=== PATIENT | male | born 1975 | race African-American/Black ===

== ENCOUNTER 2018-08-09 12:25 | Emergency (ER) | payer OTHER ==
[2018-08-09] MEDS ORDERED: IBUPROFEN 400 MG TABLET PO STA (16:21)
[2018-08-09] MEDS ORDERED: LIDOCAINE PATCH 5% TOP STA (16:21)
--- NOTE | 2018-08-09 16:23 | ED Physician Documentation ---
History of Present Illness - Stated complaint Stated Complaint: BACK PX - Chief complaint Chief Complaint: Back Pain - Additonal information Additional information: hx from pt 43 male [place] fell over something at work today and landed on bottom and back severe pain to posterior low right rib region no head injury no neck pain'no low back pain PD PAST MEDICAL HISTORY - Past Medical History Past Medical History: No Cardiovascular: None Respiratory: None Neuro: None Endocrine/Autoimmune: None GI: None : None HEENT: None Psych: ADD/ADHD Musculoskeletal: None Derm: None - Past Surgical History Past Surgical History: No - Present Medications Home Medications: Ambulatory Orders Medication Instructions Recorded Confirmed Cyclobenzaprine [Flexeril] 10 mg PO TID PRN #20 tablet 08/09/18 Ibuprofen [Motrin] 400 mg PO Q6H #30 tablet 08/09/18 Lidocaine Patch 5% [Lidoderm Patch] 1 patch TOP DAILY PRN #10 patch 08/09/18 - Allergies Allergies/Adverse Reactions: Allergies Allergy/AdvReac Type Severity Reaction Status Date / Time No Known Drug Allergies Allergy Verified 08/09/18 12:57 - Social History Does the pt smoke?: No Smoking Status: Never smoker Does the pt drink ETOH?: Yes Does the pt have substance abuse?: No - Immunizations Immunizations are current?: Yes - POLST Patient has POLST: No Results - Vitals Vitals: Vital Signs - 24 hr 08/09/18 08/09/18 12:53 15:59 Temperature 36.2 C L Heart Rate 50 L 77 Respiratory 16 18 Rate Blood Pressure 127/70 111/67 O2 Saturation 97 99 Oxygen O2 Source Room air - Rads (name of study) CXR PA and lat Radiology: See rad report (no acute) Departure - Departure Disposition: Home, Self Care Clinical Impression: Fall Qualifiers: Encounter type: initial encounter Qualified Code(s): W19.XXXA - Unspecified fall, initial encounter Back contusion Qualifiers: Encounter type: initial encounter Laterality: left Qualified Code(s): S20.222A - Contusion of left back wall of thorax, initial encounter Condition: Good Instructions: ED Contusion Back, ED Neck Back Pain General Follow-Up: [facility] [Provider Group] Prescriptions: Cyclobenzaprine [Flexeril] 10 mg PO TID PRN #20 tablet PRN Reason: Spasms Ibuprofen [Motrin] 400 mg PO Q6H #30 tablet Lidocaine Patch 5% [Lidoderm Patch] 1 patch TOP DAILY PRN #10 patch PRN Reason: pain Comments: The xray does not show any rib or spine fractures nor any lung injry. You have a normal neurologic exam. I think it is safe for you to go home with medication for the pain and a note for limited duty Forms: Activity restrictions
--- NOTE | 2018-08-09 17:39 | XRAY Report ---
Reason: soa Procedure Date: 08/09/2018 Accession Number: [id number] / [id number] Procedure: XR - Chest 2 View X-Ray CPT Code: 78773 FULL RESULT: EXAM: CHEST RADIOGRAPHY EXAM DATE: 08/09/2018 05:11 PM. CLINICAL HISTORY: Soa. COMPARISON: None. TECHNIQUE: 2 views. FINDINGS: Lungs/Pleura: No focal opacities evident. No pleural effusion. No pneumothorax. Normal volumes. Mediastinum: Heart and mediastinal contours are unremarkable. Other: There is a round 3 mm metal density structure overlying the left upper lobe on both images. IMPRESSION: 1. No evidence of pneumonia or acute airspace disease. 2. 3 mm round metal density/BB, possibly located within the left upper lobe RADIA
[2018-08-09 18:01] VITALS: BP 120/78
== END 2018-08-09 18:01 | disposition home or self-care (01) ==
LOC: ED 12:25
DX: S20.222A Contusion of left back wall of thorax, initial encounter (principal); W18.30XA Fall on same level, unspecified, initial encounter; W22.09XA Striking against other stationary object, initial encounter; Y99.0 Civilian activity done for income or pay
CPT/HCPCS: 71046; 99283; A9270

== ENCOUNTER 2021-03-04 07:49 | Emergency (ER) | payer OTHER ==
[2021-03-04 08:23] LABS: BASOPHILS # (AUTO) 0.1 10^3/uL (0.0-0.1); BASOPHILS % (AUTO) 1.1 %; EOSINOPHILS # (AUTO) 0.3 10^3/uL (0.0-0.7); EOSINOPHILS % (AUTO) 5.3 %; HCT - HEMATOCRIT 43.2 % (42.0-52.0); HGB - HEMOGLOBIN 14.5 g/dL (14.0-18.0); LYMPHOCYTES # (AUTO) 1.8 10^3/uL (1.5-3.5); LYMPHOCYTES % (AUTO) 29.6 %; MEAN CORPUSCULAR HEMOGLOBIN 29.5 pg (27.0-31.0); MEAN CORPUSCULAR HGB CONC 33.6 g/dL (32.0-36.0); MEAN CORPUSCULAR VOLUME 87.8 fL (80.0-94.0); MEAN PLATELET VOLUME 10.5 fL (7.4-11.4); MONOCYTES # (AUTO) 0.3 10^3/uL (0.0-1.0); MONOCYTES % (AUTO) 5.3 %; NEUTROPHILS # (AUTO) 3.6 10^3/uL (1.5-6.6); NEUTROPHILS % (AUTO) 58.5 %; PLT - PLATELET COUNT 256 10^3/uL (130-450); RED BLOOD COUNT 4.92 10^6/uL (4.70-6.10); WHITE BLOOD COUNT 6.2 x10^3/uL (4.8-10.8)
[2021-03-04 08:34] LABS: BILIRUBIN,URINE NEGATIVE (NEGATIVE); GLUCOSE, URINE (UA) NEGATIVE (NEGATIVE); KETONES,URINE (UA) NEGATIVE (NEGATIVE); LEUKOCYTE ESTERASE, URINE NEGATIVE (NEGATIVE); NITRITE,URINE NEGATIVE (NEGATIVE); OCCULT BLOOD,URINE NEGATIVE (NEGATIVE); PROTEIN,URINE NEGATIVE (NEGATIVE); UROBILINOGEN,URINE 0.2 (NORMAL) E.U./dL (NORMAL)
[2021-03-04 08:35] LABS: CLARITY,URINE CLEAR (CLEAR)
[2021-03-04 08:37] LABS: ALBUMIN 4.3 g/dL (3.2-5.5); ALBUMIN/GLOBULIN RATIO 1.4 (1.0-2.2); BILIRUBIN,TOTAL 0.6 mg/dL (0.2-1.0); CALCIUM 9.3 mg/dL (8.5-10.3); CREATININE 0.9 mg/dL (0.6-1.2); POTASSIUM 3.9 mmol/L (3.5-5.0); TOTAL PROTEIN 7.3 g/dL (6.7-8.2)
[2021-03-04] MEDS: GI COCKTAIL 120 ML BOTTLE PO STA (09:18)
--- NOTE | 2021-03-04 09:20 | ED Physician Documentation ---
PD HPI ABD PAIN - Stated complaint Stated Complaint: ABD PX - Chief complaint Chief Complaint: Abd Pain - History obtained from History obtained from: Patient - Additional information Additional information: Patient comes emergency department chief complaint of intermittent upper abdominal pain and nausea for the last 3 weeks. He states it started after he got his second Covid shot and is also had migraines since then, as well. Patient denies actual vomiting but states that he has nausea along with the episodes. He states he gets them every few days and that they seem to come on randomly. He denies association with any certain kind of food. No fevers or chills. No changes in bowel habits. No dysuria. No back pain. Patient has a sickle cell trait history but has never had symptoms with this. No known history in the patient or family of gallstones or ulcers. He is otherwise fairly healthy, he states. No other complaints at this time. [place] states he was just given "aspirin" and sent home. He has not had any testing or other evaluation. Review of Systems Ten Systems: 10 systems reviewed and negative Constitutional: reports: Reviewed and negative Eyes: reports: Reviewed and negative Ears: reports: Reviewed and negative Nose: reports: Reviewed and negative Throat: reports: Reviewed and negative Cardiac: reports: Reviewed and negative Respiratory: reports: Reviewed and negative GI: reports: Abdominal Pain, Nausea : reports: Reviewed and negative Skin: reports: Reviewed and negative Musculoskeletal: reports: Reviewed and negative Neurologic: reports: Reviewed and negative Psychiatric: reports: Reviewed and negative Endocrine: reports: Reviewed and negative Immunocompromised: reports: Reviewed and negative PD PAST MEDICAL HISTORY - Past Medical History Cardiovascular: Murmur Respiratory: None Neuro: Migraines Endocrine/Autoimmune: None GI: None : None HEENT: None Psych: ADD/ADHD Musculoskeletal: None Derm: None - Past Surgical History Past Surgical History: No - Present Medications Home Medications: Ambulatory Orders Medication Instructions Recorded Confirmed Ondansetron Odt [Zofran] 4 mg TL Q6H PRN #10 tablet 03/04/21 Pantoprazole Sodium [Protonix] 20 mg PO DAILY #30 03/04/21 - Allergies Allergies/Adverse Reactions: Allergies Allergy/AdvReac Type Severity Reaction Status Date / Time No Known Drug Allergies Allergy Verified 03/04/21 07:59 - Social History Does the pt smoke?: No Smoking Status: Never smoker Does the pt drink ETOH?: Yes Does the pt have substance abuse?: No - Immunizations Immunizations are current?: Yes - POLST Patient has POLST: No PD ED PE NORMAL - Vitals Vital signs reviewed: Yes - General General: Alert and oriented X 3, No acute distress, Well developed/nourished - HEENT HEENT: Atraumatic, PERRL, EOMI, Moist mucous membranes - Neck Neck: Supple, no meningeal sign - Cardiac Cardiac: RRR, No murmur, Strong equal pulses - Respiratory Respiratory: No respiratory distress, Clear bilaterally - Abdomen Abdomen: Soft, Non distended, Other (Moderate tenderness across upper abdomen without rebound or guarding.) - Back Back: No CVA TTP - Derm Derm: Normal color, Warm and dry, No rash - Extremities Extremities: No deformity, No edema - Neuro Neuro: Alert and oriented X 3 - Psych Psych: Normal mood, Normal affect Results - Vitals Vitals: Vital Signs - 24 hr 03/04/21 10:33 Temperature 36.6 C Heart Rate 55 L Respiratory 16 Rate Blood Pressure 115/76 O2 Saturation 99 Oxygen O2 Source Room air - Labs Labs: Laboratory Tests 03/04/21 03/04/21 03/04/21 08:15 08:15 08:15 WBC 6.2 RBC 4.92 Hgb 14.5 Hct 43.2 MCV 87.8 MCH 29.5 MCHC 33.6 RDW 13.0 Plt Count 256 MPV 10.5 Neut # (Auto) 3.6 Lymph # (Auto) 1.8 Barry # (Auto) 0.3 Eos # (Auto) 0.3 Baso # (Auto) 0.1 Absolute Nucleated RBC 0.00 Nucleated RBC % 0.0 Sodium 140 Potassium 3.9 Chloride 103 Carbon Dioxide 30 Anion Gap 7.0 BUN 12 Creatinine 0.9 Estimated GFR (MDRD) 111 Glucose 124 H Calcium 9.3 Total Bilirubin 0.6 AST 26 ALT 42 Alkaline Phosphatase 57 Total Protein 7.3 Albumin 4.3 Globulin 3.0 Albumin/Globulin Ratio 1.4 Lipase 52 H Urine Color YELLOW Urine Clarity CLEAR Urine pH 5.0 Ur Specific [place] 1.025 Urine Protein NEGATIVE Urine Glucose (UA) NEGATIVE Urine Ketones NEGATIVE Urine Occult Blood NEGATIVE Urine Nitrite NEGATIVE Urine Bilirubin NEGATIVE Urine Urobilinogen 0.2 (NORMAL) Ur Leukocyte Esterase NEGATIVE Ur Microscopic Review NOT INDICATED Urine Culture Comments NOT INDICATED PD MEDICAL DECISION MAKING - ED course Complexity details: reviewed results, re-evaluated patient, considered differential, d/w patient ED course: The patient was treated with a liter of 0.9 normal saline and given a GI cocktail, Zofran, and Protonix. Patient was worked up with labs, which were overall unremarkable except a slightly elevated lipase. He was also worked up ultrasound of the upper abdomen. US was negative. We have discussed that the next step to consider in work-up should be a scope. I have started the pt on Protonix and Zofran. Departure - Departure Disposition: Home, Self Care Clinical Impression: Abdominal pain Qualifiers: Abdominal location: upper abdomen, unspecified Qualified Code(s): R10.10 - Upper abdominal pain, unspecified Condition: Stable Instructions: ED Abdominal Pain Unkn Cause Prescriptions: Pantoprazole Sodium [Protonix] 20 mg PO DAILY #30 Ondansetron Odt [Zofran] 4 mg TL Q6H PRN #10 tablet PRN Reason: Nausea / Vomiting Comments: Your labs showed a very slightly elevated lipase, which is one of your pancreatic enzymes. However, your ultrasound to look at your upper abdominal organs, including gallbladder, liver, and pancreas, was unremarkable. You do not have gallstones or an inflamed gallbladder. As we discussed, the symptoms you are having may represent inflammation of the early digestive tract, including stomach and the first part of the small intestine. This can lead to ulcer formation, and the best way to diagnose all of this is with endoscopy. Either general surgery or a professional tutor can do this. You may call the surgery office to request an appointment, or you may ask your primary doctor to refer you to gastroenterology. Please take the medication for your stomach and for nausea as directed. Discharge Date/Time: 03/04/21 10:41
[2021-03-04] MEDS: ONDANSETRON 4 MG/2 ML VIAL IVP STA (09:26)
[2021-03-04] MEDS: PANTOPRAZOLE 40 MG VIAL IVP STA (09:26)
[2021-03-04] MEDS: MAG HYDROX/AL HYDROX/SIMETH 30 ML UDC PO STA (09:29)
[2021-03-04] MEDS: LIDOCAINE VISCOUS 2% 15 ML UDC MM STA (09:30)
--- NOTE | 2021-03-04 09:59 | Ultrasound Report ---
PROCEDURE: Abdomen Limited INDICATIONS: upper abd pain, nausea TECHNIQUE: Real-time focused scanning was performed of the abdomen, with image documentation. COMPARISON: None FINDINGS: The liver is mildly echogenic suggesting possible fatty change. Gallbladder is unremarkable. No stones or gallbladder wall thickening or pain on examination. Pancreas not visualized secondary to overlying bowel gas. No dilated ducts. Common bile duct measures 5.7 mm. Right kidney is normal size, measuring 11.8 cm. No hydronephrosis. IMPRESSION: Question mild fatty change in the liver. No evidence of gallstone disease. Reviewed by: Ponce Gregorio MD on 03/04/2021 9:58 AM PDT Approved by: Ponce Gregorio MD on 03/04/2021 9:58 AM PDT Station ID: [id number]
[2021-03-04 10:34] VITALS: BP 115/76
== END 2021-03-04 10:41 | disposition home or self-care (01) ==
LOC: ED 07:49
DX: R10.10 Upper abdominal pain, unspecified (principal)
CPT/HCPCS: 36415; 76705; 80053; 81003; 83690; 85025; 96374; 96375; 99284; A9270; 81001; 87086

== ENCOUNTER 2021-05-20 10:40 | Emergency (ER) | payer OTHER ==
[2021-05-20 11:40] LABS: BILIRUBIN,URINE NEGATIVE (NEGATIVE); GLUCOSE, URINE (UA) NEGATIVE (NEGATIVE); KETONES,URINE (UA) NEGATIVE (NEGATIVE); LEUKOCYTE ESTERASE, URINE NEGATIVE (NEGATIVE); NITRITE,URINE NEGATIVE (NEGATIVE); OCCULT BLOOD,URINE NEGATIVE (NEGATIVE); PROTEIN,URINE NEGATIVE (NEGATIVE); UROBILINOGEN,URINE 0.2 (NORMAL) E.U./dL (NORMAL)
[2021-05-20 11:44] LABS: BASOPHILS % (AUTO) 0.9 %; EOSINOPHILS # (AUTO) 0.1 10^3/uL (0.0-0.7); EOSINOPHILS % (AUTO) 2.4 %; HCT - HEMATOCRIT 43.4 % (42.0-52.0); HGB - HEMOGLOBIN 14.5 g/dL (14.0-18.0); LYMPHOCYTES # (AUTO) 1.3 10^3/uL (1.5-3.5); LYMPHOCYTES % (AUTO) 30.1 %; MEAN CORPUSCULAR HEMOGLOBIN 29.4 pg (27.0-31.0); MEAN CORPUSCULAR HGB CONC 33.4 g/dL (32.0-36.0); MEAN CORPUSCULAR VOLUME 87.9 fL (80.0-94.0); MEAN PLATELET VOLUME 10.4 fL (7.4-11.4); MONOCYTES # (AUTO) 0.4 10^3/uL (0.0-1.0); MONOCYTES % (AUTO) 8.9 %; NEUTROPHILS # (AUTO) 2.5 10^3/uL (1.5-6.6); NEUTROPHILS % (AUTO) 57.7 %; PLT - PLATELET COUNT 234 10^3/uL (130-450); RED BLOOD COUNT 4.94 10^6/uL (4.70-6.10); RED CELL DISTRIBUTION WIDTH 13.1 % (12.0-15.0); WHITE BLOOD COUNT 4.3 x10^3/uL (4.8-10.8)
[2021-05-20 11:45] LABS: CLARITY,URINE CLEAR (CLEAR)
[2021-05-20 11:58] LABS: ALBUMIN 4.4 g/dL (3.2-5.5); ALBUMIN/GLOBULIN RATIO 1.5 (1.0-2.2); CALCIUM 9.5 mg/dL (8.5-10.3); POTASSIUM 3.9 mmol/L (3.5-5.0); TOTAL PROTEIN 7.3 g/dL (6.7-8.2)
[2021-05-20] MEDS ORDERED: HYDROmorphone 1 MG/ML CARPUJECT IM STA (12:19)
[2021-05-20] MEDS ORDERED: MAG HYDROX/AL HYDROX/SIMETH 30 ML UDC PO STA (12:20)
[2021-05-20] MEDS ORDERED: LIDOCAINE VISCOUS 2% 15 ML UDC MM STA (12:20)
--- NOTE | 2021-05-20 12:20 | ED Physician Documentation ---
PD HPI ABD PAIN - Stated complaint Stated Complaint: ABD PX - Chief complaint Chief Complaint: Abd Pain - History obtained from History obtained from: Patient - Additional information Additional information: Patient comes emergency department chief complaint of flareup of chronic upper abdominal pain. He states that this is been going on on and off for months now and that he is supposed to be getting a colonoscopy and EGD sometime soon. Patient states that he has had extensive work-up and has at this point been told by his doctor to just take Tylenol for the pain if it comes up. However, the p atient states it was so bad this morning that he did not feel that he could go to work and feels that he needs something stronger for the pain. Patient states that the character of the pain is the same, just more intense than usual. No other complaints at this time. No vomiting or fever. Slight nausea. No dysuria reported stools. No diarrhea. Review of Systems Ten Systems: 10 systems reviewed and negative Constitutional: reports: Reviewed and negative Eyes: reports: Reviewed and negative Ears: reports: Reviewed and negative Nose: reports: Reviewed and negative Throat: reports: Reviewed and negative Cardiac: reports: Reviewed and negative Respiratory: reports: Reviewed and negative GI: reports: Abdominal Pain, Nausea : reports: Reviewed and negative Skin: reports: Reviewed and negative Musculoskeletal: reports: Reviewed and negative Neurologic: reports: Reviewed and negative Psychiatric: reports: Reviewed and negative Endocrine: reports: Reviewed and negative Immunocompromised: reports: Reviewed and negative PD PAST MEDICAL HISTORY - Past Medical History Cardiovascular: Murmur Respiratory: None Neuro: Migraines Endocrine/Autoimmune: None GI: None : None HEENT: None Psych: ADD/ADHD Musculoskeletal: None Derm: None - Past Surgical History Past Surgical History: No - Present Medications Home Medications: Ambulatory Orders Medication Instructions Recorded Confirmed Ondansetron Odt [Zofran] 4 mg TL Q6H PRN #10 tablet 03/04/21 Pantoprazole Sodium [Protonix] 20 mg PO DAILY #30 03/04/21 - Allergies Allergies/Adverse Reactions: Allergies Allergy/AdvReac Type Severity Reaction Status Date / Time No Known Drug Allergies Allergy Verified 03/04/21 07:59 - Social History Does the pt smoke?: No Smoking Status: Never smoker Does the pt drink ETOH?: Yes Does the pt have substance abuse?: No - Immunizations Immunizations are current?: Yes - POLST Patient has POLST: No PD ED PE NORMAL - Vitals Vital signs reviewed: Yes - General General: Alert and oriented X 3, No acute distress, Well developed/nourished - HEENT HEENT: Atraumatic, PERRL, EOMI, Moist mucous membranes - Neck Neck: Supple, no meningeal sign - Cardiac Cardiac: RRR, No murmur - Respiratory Respiratory: No respiratory distress, Clear bilaterally - Abdomen Abdomen: Soft, Non distended, Other (Moderate epigastric tenderness, no rebound or guarding. Slightly less tenderness in right and left upper quadrants.) - Derm Derm: Normal color, Warm and dry, No rash - Extremities Extremities: No deformity, No edema - Neuro Neuro: Alert and oriented X 3, compo caster 2-12 intact, Normal speech - Psych Psych: Normal mood, Normal affect Results - Vitals Vitals: Vital Signs - 24 hr 05/20/21 05/20/21 12:53 14:00 Heart Rate 50 L 50 L Respiratory 18 19 Rate Blood Pressure 112/72 110/65 O2 Saturation 99 98 Oxygen O2 Source Room air - Labs Labs: Laboratory Tests 05/20/21 05/20/21 05/20/21 11:25 11:39 11:39 WBC 4.3 L RBC 4.94 Hgb 14.5 Hct 43.4 MCV 87.9 MCH 29.4 MCHC 33.4 RDW 13.1 Plt Count 234 MPV 10.4 Neut # (Auto) 2.5 Lymph # (Auto) 1.3 L [place] # (Auto) 0.4 Eos # (Auto) 0.1 Baso # (Auto) 0.0 Absolute Nucleated RBC 0.00 Nucleated RBC % 0.0 Sodium 140 Potassium 3.9 Chloride 103 Carbon Dioxide 29 Anion Gap 8.0 BUN 12 Creatinine 1.0 Estimated GFR (MDRD) 98 Glucose 96 Calcium 9.5 Total Bilirubin 1.0 AST 22 ALT 28 Alkaline Phosphatase 46 Total Protein 7.3 Albumin 4.4 Globulin 2.9 Albumin/Globulin Ratio 1.5 Lipase 64 H Urine Color YELLOW Urine Clarity CLEAR Urine pH 6.0 Ur Specific [place] 1.025 Urine Protein NEGATIVE Urine Glucose (UA) NEGATIVE Urine Ketones NEGATIVE Urine Occult Blood NEGATIVE Urine Nitrite NEGATIVE Urine Bilirubin NEGATIVE Urine Urobilinogen 0.2 (NORMAL) Ur Leukocyte Esterase NEGATIVE Ur Microscopic Review NOT INDICATED Urine Culture Comments NOT INDICATED PD MEDICAL DECISION MAKING - ED course Complexity details: reviewed results, re-evaluated patient, considered differential, d/w patient ED course: Labs were unremarkable in the emergency department. Patient was treated symptomatically. His sx were consistent with prior exacerbations, and I felt he was stable for d/c home. Departure - Departure Disposition: , Self Care Clinical Impression: Abdominal pain Qualifiers: Abdominal location: epigastric Qualified Code(s): R10.13 - Epigastric pain Condition: Stable Instructions: ED Abdominal Pain Unkn Cause Male Forms: Activity restrictions Discharge Date/Time: 05/20/21 14:15
[2021-05-20 14:05] VITALS: BP 110/65
== END 2021-05-20 14:15 | disposition home or self-care (01) ==
LOC: ED 10:40
DX: R10.13 Epigastric pain (principal)
CPT/HCPCS: 36415; 80053; 81003; 83690; 85025; 96372; 99283; A9270; J1170; 81001; 87086